=== PATIENT | female | born 1960 | race Caucasian/White ===

== ENCOUNTER 2017-01-01 14:33 | Emergency (ER) | payer BC ==
--- NOTE | ~2017-01-01 | ER ---
PATIENT'S NAME: BHUMI NELSON [facility] AGE: 56 Y [address] ROOM: [place] [address] LOCATION: [facility] ADMIT DATE: 01/01/2017 ER/Outpatient Report DISCHARGE DATE: 01/01/2017 FAMILY PHYSICIAN: Clarence Fletcher MD ATTENDING PHYSICIAN: Terry Hanson TIME OF EVALUATION: 1437 hours. CHIEF COMPLAINT: Shortness of breath. HISTORY OF PRESENT ILLNESS: The patient is a 56-year-old female who said about approximately 3:00 this morning, she had sudden onset of feeling short of breath. She said she had a coughing episode but denied any hemoptysis or productive sputum. The patient also denied any chest pain or palpitations. The patient was seen at [facility] with Dr. Clarence Fletcher. She had lab work, which included a BNP, CBC, CMS and a chest x-ray, all of which were supposedly normal. The patient was advised to go to the emergency room if symptoms continued. The patient does have a history of some mild reactive airway, and she did use her inhaler on one occasion without relief. The patient denied any recent surgery or travels. She has had no pain or discomfort in her calves. ALLERGIES: SHE AVOIDS CODEINE AND CIPRO. CURRENT MEDICATIONS: See copied list, which was reviewed. MEDICAL HISTORY: Srn-bwysojz-ddgbnqymc diabetes, hypertension. She had a walking pneumonia approximately 10 years ago, hypothyroidism, and chronic tinnitus. SURGERIES: Tonsillectomy, , she is post menopausal. SOCIAL HISTORY: Remote smoking history. Denies alcohol. REVIEW OF SYSTEMS: GENERAL: No recent fever or chills. HEENT: No complaints of headache, nasal congestion, sore throat. RESPIRATORY: Feeling of shortness of breath with a slight cough. No hemoptysis. PATIENT'S NAME: BHUMI NELSON [facility] AGE: 56 Y [address] ROOM: [place] [address] LOCATION: [facility] ADMIT DATE: 01/01/2017 ER/Outpatient Report DISCHARGE DATE: 01/01/2017 FAMILY PHYSICIAN: Clarence Fletcher MD ATTENDING PHYSICIAN: Terry Hanson CARDIOVASCULAR: Denies any chest pain or palpitations. GASTROINTESTINAL: No recent weight loss or change in bowel habits. GENITOURINARY: Negative. MUSCULOSKELETAL: Denies any pain in her calves. OBJECTIVE: VITAL SIGNS: Initial blood pressure was 179/94, temp is 97.2, her respiratory rate 20, pulse 90, O2 sats on room air were 99%. GENERAL APPEARANCE: Alert, did not appear to be in any distress. HEAD: Normocephalic. EYES: PERRLA. No icterus. Visions corrected. NOSE: Septum midline. MOUTH: Teeth in good repair. Tongue midline. Buccal membranes moist. NECK: No jugular venous distention. No adenopathy. LUNGS: Slightly diminished but clear throughout. HEART: Tones distant, regular. ABDOMEN: Obese but soft. EXTREMITIES: No calf tenderness. Negative Homans sign. LABORATORY DATA AND X-RAYS: Her EKG showed normal sinus rhythm. No ischemic changes. Her cardiac enzymes: CPK 97, her CK-MB was 1.2. Her D-dimer was 0.41, which was within the normal ranges. Her CBC, CMS, and BNP from [facility] were reviewed and a copy made. Chest x-ray here: Heart size appears normal. There is no consolidation present. ASSESSMENT: 1. Feeling of shortness of breath. 2. Hypertension. 3. Hypothyroidism. 4. Mild obesity. PLAN: We did talk about doing a CT for PE protocol, however, with a D-dimer being normal and no real significant risk factors, we decided not to do so. However, if the shortness of breath continues or she has any chest pain or any concerns, to return to the emergency room. Otherwise, I recommend she use her inhaler today about 2 puffs every 6 hours. The patient verbalized understanding of our findings and recommendations and agreed. STEFFANY CARRILLO FOR TERRY HANSON MD PATIENT'S NAME: BHUMI NELSON [facility] AGE: 56 Y [address] ROOM: [place], [place] [address] LOCATION: [facility] ADMIT DATE: 01/01/2017 ER/Outpatient Report DISCHARGE DATE: 01/01/2017 FAMILY PHYSICIAN: Clarence Fletcher MD ATTENDING PHYSICIAN: Terry Hanson/corky /[id number] d: 01/01/176 t: 01/09/17 1010, OUTPATIENT REPORT
== END 2017-01-01 16:44 | disposition disaster alternative care site (69) ==
LOC: GMED 14:33
PROVIDERS: Emergency Medicine
DX: R06.02 Shortness of breath (principal); I10 Essential (primary) hypertension; E03.9 Hypothyroidism, unspecified; E66.9 Obesity, unspecified; E11.9 Type 2 diabetes mellitus without complications; Z88.1 Allergy status to other antibiotic agents; Z88.5 Allergy status to narcotic agent; Z90.89 Acquired absence of other organs; Z79.84 Long term (current) use of oral hypoglycemic drugs; Z79.899 Other long term (current) drug therapy